=== PATIENT | male | born 1960 | race Caucasian/White ===

== ENCOUNTER → 2017-08-22 | Outpatient (CLI) | payer OTHER ==
[~2017-08-22] MED LIST: GADAVIST IV PRN
--- NOTE | 2017-08-22 19:45 | DIAGNOSTIC IMAGING REPORT ---
ORBITS FOR MRI CLINICAL HISTORY: 57 years-old Male presenting with PAPILLEDEMA. TECHNIQUE: 3 views of the orbits were obtained. COMPARISON: None. FINDINGS: No radiopaque intraorbital foreign body. Bony orbits grossly intact. Paranasal sinuses grossly clear. Visualized portion of the calvarium intact. IMPRESSION: No intraorbital metallic foreign body to preclude MRI exam. Electronically signed by: João Sol M.D. 08/22/2017 7:44 PM Dictated Date/Time: 08/22/2017 7:44 PM
--- NOTE | 2017-08-22 21:50 | DIAGNOSTIC IMAGING REPORT ---
MRV HEAD WITHOUT CONTRAST CLINICAL HISTORY: 57 years-old Male presenting with bilateral papilledema, some blurred vision. TECHNIQUE: MR venography of the head was performed without the use of intravenous contrast using 3-D [id number] technique. 3-D volumetric and/or maximum intensity projection (MIP) images were subsequently reconstructed for review. IV contrast: None. COMPARISON: None. FINDINGS: Localizer images: Unremarkable. Superior sagittal sinus patent. Internal cerebral veins patent. Great vein of Igor and straight sinus patent. Asymmetric flow related enhancement in the transverse and sigmoid sinuses and left jugular bulb with relative decreased signal intensity on the right. Left transverse and sigmoid sinus patent. Left jugular bulb patent. Cortical veins grossly patent. IMPRESSION: 1. Asymmetric flow related enhancement in the right transverse and sigmoid sinus as well as the right jugular bulb. This could indicate slow flow although thrombus is somewhat difficult to confidently exclude. Please see separately dictated MR of the brain. The report will be called/faxed according to standard departmental protocol. Electronically signed by: João Sol M.D. 08/22/2017 9:49 PM Dictated Date/Time: 08/22/2017 9:44 PM
--- NOTE | 2017-08-22 22:10 | DIAGNOSTIC IMAGING REPORT ---
BRAIN COMBO CLINICAL HISTORY: 57 years-old Male presenting with PAPILLEDEMA. TECHNIQUE: Multisequence, multiplanar MR imaging of the brain was performed before and after the administration of intravenous contrast. IV contrast: 12 mL of Gadavist. COMPARISON: None. FINDINGS: No evidence of papilledema on T2-weighted imaging. Ventricles and sulci normal in size. Few scattered white matter T2/FLAIR hyperintensities likely age-related. Brain parenchyma normal in appearance with preserved demarco-white differentiation. No mass effect or midline shift. No restricted diffusion to suggest acute ischemia. No hemorrhage. No extra-axial fluid collection. Increased signal intensity in the right transverse sinus, sigmoid sinus, and right jugular bulb. No T1 hyperintensity within these regions to further evidence thrombus. A flow void is evident within these regions on FLAIR. This could relate to slow flow. T2 skull base flow voids otherwise preserved. No abnormal parenchymal enhancement. Bone marrow signal intensity within the calvarium within normal limits. IMPRESSION: 1. No MR evidence of papilledema. 2. No acute intracranial pathology. No abnormal enhancement. 3. Loss of the normal flow void on some but not all sequences in the right transverse sinus, sigmoid sinus and right jugular bulb. This is favored to represent slow flow. If there is continuing clinical concern, CTV could be obtained. Electronically signed by: João Sol M.D. 08/22/2017 10:08 PM Dictated Date/Time: 08/22/2017 10:02 PM
== END | disposition home or self-care (01) ==
LOC: C.RAD 19:04
PROVIDERS: ATTEND Ophthalmology
DX: H47.10 Unspecified papilledema (principal)